=== PATIENT | female | born 1965 | race Caucasian/White ===

== ENCOUNTER 2022-02-24 00:30 | Emergency (ER) | payer SELFPAY ==
[~2022-02-24] VITALS: Ht 165.1 cm; Wt 90.7 kg
--- NOTE | 2022-02-24 00:52 | NUR ---
No beds available in the ER. Placed in hallway.
--- NOTE | 2022-02-24 00:54 | NUR ---
Dr Mcclelland into eval patient.
[2022-02-24 01:30] LABS: HEMATOCRIT 41.8 % (31.2-41.9); MEAN CORPUSCULAR HEMOGLOBIN 30.9 uug (24.7-32.8); MEAN CORPUSCULAR VOLUME 89.6 fL (75.5-95.3); PLATELET COUNT (AUTO) 343 K/uL (179-408)
[2022-02-24 01:34] LABS: CARBON DIOXIDE 23 mmol/L (21-32); CHLORIDE 104 mmol/L (98-107); CREATININE 0.9 mg/dL (0.6-1.3); GLUCOSE 143 mg/dL (74-106); POTASSIUM 3.5 mmol/L (3.5-5.1); UREA NITROGEN, BLOOD 10 mg/dL (7-18)
[2022-02-24 01:40] LABS: ALANINE AMINOTRANSFERASE 63 U/L (14-59); ALKALINE PHOSPHATASE 99 U/L (50-136); ASPARTATE AMINOTRANSFERASE 37 U/L (15-37); BILIRUBIN,DIRECT 0.1 mg/dL (0.0-0.2); BILIRUBIN,TOTAL 0.7 mg/dL (0.2-1.0); ETHANOL < 3 MG/DL (0-0); TOTAL PROTEIN, SERUM 8.2 g/dL (6.4-8.2)
[2022-02-24 01:41] LABS: ACETAMINOPHEN < 2.0 ug/mL (10-30)
--- NOTE | 2022-02-24 01:45 | NUR ---
[employer] PLACED PATIENT ON 5150 FOR DTS.
[2022-02-24 01:47] LABS: *BILIRUBIN,URIN NEGATIVE (NEGATIVE); *BLOOD, URINE NEGATIVE (NEGATIVE); *CLARITY,URINE CLEAR (CLEAR); *COLOR,URINE YELLOW (YELLOW); *KETONES,URINE TRACE (NEGATIVE); *UROBILINOGEN,URINE 0.2 E.U./dl (NORMAL); LEUKOCYTE ESTERASE ,URINE NEGATIVE (NEGATIVE); NITRITE, URINE NEGATIVE (NEGATIVE); PH,URINE 5.5 (5.0-8.0); UGLUCOSE NEGATIVE (NEGATIVE)
--- NOTE | 2022-02-24 02:00 | NUR ---
assumed care of pt, per report pt overdosed this evening, after recieving bad news about a relative. pt took an unknown quanitity of Ativan and Lamictal. pt denies SI sts empahtically, she just wanted to sleep. pt admits to hx of anxiety, denies suicidal intent. She lives with her boyfriend, denies alcohol and tobacco use. besides anxiety pt denies further hx, but has noticed a 45 pound weight gain over the last year. pt assited to bed, placed on monitoring equipment and allowed to rest in a therapuetic mileu.
[2022-02-24 02:03] LABS: *AMPHETAMINE, URINE NEGATIVE (NEGATIVE); *CANNABINOID, URINE POSITIVE (NEGATIVE); *COCCAINE, URINE NEGATIVE (NEGATIVE); *OPIATE, URINE NEGATIVE (NEGATIVE); *PHENCYCLIDINE SCREEN,URINE NEGATIVE (NEGATIVE)
--- NOTE | 2022-02-24 02:34 | NUR ---
Medically cleared by Dr Mcclelland. Ramos from [facility] [employer] was called andf will come and eval patient.
[2022-02-24] MEDS ORDERED: PROCHLORPERAZINE EDISYLATE 10 MG/2 ML VIAL IM ONE (02:45)
[2022-02-24] MEDS ORDERED: PROCHLORPERAZINE EDISYLATE 10 MG/2 ML VIAL ONE (02:46)
--- NOTE | 2022-02-24 02:56 | NUR ---
Patient vomiting. Dr Mcclelland aware. orders recieved and carried out.
--- NOTE | 2022-02-24 03:01 | NUR ---
pt remains on cradiac monitor, intermittent blood pressure and pulse ox, pt has had favourable response to anti emetic and is now resting in bed, lying in the left lateral position, pts airway is intact and patent with no signs of distress. pt reminded of call light, replaced within reach of pt. pt appears to be is emotional distress as she is inexplicably crying and is unable to stop. pts face and exposed body are covered in blankets and soiled linen has been replaced. pt on hold from [employer], 5150, DTS Patient seen on her left side vomiting, airway was kept clear and intact. Helped her up to a comfortable position. Patient was helped cleaned up and given a new blanket after soiling previous one. Patient was also given the option to help her rinse her mouth. Was given an antiemetic as ordered. Patient was mumbling, some words are understandable. Turned the lights of per patient's request for sleep.
--- NOTE | 2022-02-24 03:38 | NUR ---
Karyna from [facility] here to eval patient.
--- NOTE | 2022-02-24 08:30 | NUR ---
Contacted Poison Control and relayed that pt took Ativan 2mg tabs about 7-8 tabs, and lamictal 200mg 4-5 tabs at 1800 yesterday. Pt has been cleared by psyche eval team and medically cleared by Doctor. Called roommate Pepe at to p/u the patient. Provided a warm meal, non-slip socks and warm blankets.
--- NOTE | 2022-02-24 08:40 | NUR ---
Poison control closed the case.
--- NOTE | 2022-02-24 08:54 | NUR ---
Social Work consult was requested for a patient in the emergency room for mental health and grief resources. Patient is a 56-year-old female. Patient appears alert and oriented X4. Patient presents with depressed mood and congruent affect. Patients primary contact is her boyfriend, Pepe Mustafa ([phone]) and he lives with the patient at [address] [place] [address]. Patient states they have a good relationship. Patient states she is currently unemployed. Patient denied history of substance abuse. Patient states she has a history of depression and anxiety. Patient states she has been grieving the loss of her mother and her brother just contracted COVID. Patient denies current suicidal ideation. SW provided emotional support, validation and spoke about coping strategies. SW provided grief and bereavement resources for [facility] , [place], [facility] , [place] and [facility] , [place]. TERESA provided the patient with mental health resources for [facility] [address] [facility]. [facility] [address], [place], [address] , [facility] [address] [facility], [id number] , and [facility] [address] [facility], [address] . TERESA also provided the resource for [facility] [address] [place] [address] ([phone]). TERESA placed the resources in the patients chart. Patient appeared appreciative of the resources. Patient states she is motivated to find a therapist when she is discharged. Patient states her discharge plan is to go home with her boyfriend, Pepe ([phone]) to [address] [place] [address].
--- NOTE | 2022-02-24 10:18 | NUR ---
PT WAS D/C'd TO HOME. D/C INSTRUCTIONS GIVEN TO THE PT BY DR ALLEN.
[2022-02-24 10:19] VITALS: BP 142/74
== END 2022-02-24 10:20 | disposition home or self-care (01) ==
LOC: ER 00:35
DX: T42.4X1A Poisoning by benzodiazepines, accidental (unintentional), initial encounter (principal); T42.6X1A Poisoning by other antiepileptic and sedative-hypnotic drugs, accidental (unintentional), initial encounter; R00.0 Tachycardia, unspecified; Y92.019 Unspecified place in single-family (private) house as the place of occurrence of the external cause; F43.21 Adjustment disorder with depressed mood; F12.10 Cannabis abuse, uncomplicated; F41.9 Anxiety disorder, unspecified; F32.A Depression, unspecified
CPT/HCPCS: 80076; 80048; 81003; 85025; 87426; 84484; 36415; 93005; 99285; 96372; 80299; 80320; 80307; J0780; A4663; G0480

== ENCOUNTER 2022-03-08 20:55 | Emergency (ER) | payer SELFPAY ==
[~2022-03-08] VITALS: Ht 172.7 cm; Wt 86.2 kg
--- NOTE | 2022-03-08 21:56 | NUR ---
Dr. Monzon at bedside for MSE.
[2022-03-08] MEDS ORDERED: LORAZEPAM 0.5 MG TABLET PO ONE (22:00)
[2022-03-08] MEDS ORDERED: LORA2TAB95 PO (22:00)
[2022-03-08] MEDS ORDERED: LORAZEPAM 1 MG TABLET ONE (22:09)
[2022-03-08 22:14] VITALS: BP 151/95
--- NOTE | 2022-03-08 22:14 | NUR ---
Patient discharged to home in stable condition. Written and verbal after care instructions given. Patient verbalizes understanding of instructions. Stressed follow up or return to ER for worsening s/s. Patient out of ER with steady gait, no acute signs of distress, VSS, all belongings taken.
== END 2022-03-08 22:15 | disposition home or self-care (01) ==
LOC: ER 20:58
DX: F41.9 Anxiety disorder, unspecified (principal); Z79.899 Other long term (current) drug therapy
CPT/HCPCS: A4663

== ENCOUNTER 2022-03-14 06:56 | Emergency (ER) | payer SELFPAY ==
[~2022-03-14] VITALS: Ht 172.7 cm; Wt 86.2 kg
[~2022-03-14 06:56] MED LIST: LORA2TAB95 PO
[2022-03-14] MEDS ORDERED: LORAZEPAM 0.5 MG TABLET PO ONE (07:45)
--- NOTE | 2022-03-14 07:47 | NUR ---
IN ED WITH REPORT OF ATIVAN WITHDRAWALS. MAINTAIN SAFE ENVIRONMENT, A,A AND O X4, VSS, TEARFUL REASSURANCE PROVIDED, SEEN BY MD AWAITING ORDERS.
[2022-03-14] MEDS ORDERED: LORAZEPAM 0.5 MG TABLET ONE (07:58)
--- NOTE | 2022-03-14 08:50 | NUR ---
DISCUSSED AND GIVE PT DISCHARGE INSTRUCTIONS AND F/U APPT WITH PCP AND RX SENT TO PT'S PHARMACY.VERBALIZED UNDERSTANDING.LEFT HOSP WITHOUT DISTRESS.
== END 2022-03-14 08:50 | disposition home or self-care (01) ==
LOC: ER 07:05
DX: F41.9 Anxiety disorder, unspecified (principal)
CPT/HCPCS: A4663